=== PATIENT | female | born 1925 | race Caucasian/White ===

== ENCOUNTER 2016-09-27 16:21 | Inpatient (IN) | payer MEDICARE, OTHER ==
[~2016-09-27] VITALS: Ht 152.4 cm; Wt 70.6 kg
[2016-09-27] MEDS ORDERED: OPTIRAY 350 100 ML VIAL HMH IV ONE (16:22)
[2016-09-27] MEDS ORDERED: ACETAMINOPHEN 650 MG/20.3 ML UDC ONE (18:00)
[2016-09-27] MEDS ORDERED: NITROGLYCERIN 2% OINT 1 INCH PKT TOPICAL ONE (18:00)
[2016-09-27] MEDS ORDERED: ACETAMINOPHEN 325 MG TAB ONE (18:01)
[2016-09-27] MEDS ORDERED: LABETALOL 100 MG/20 ML VIAL ONE (19:36)
[2016-09-27] MEDS ORDERED: cloNIDine 0.1 MG TAB ONE (21:34)
[2016-09-27] MEDS ORDERED: CEFTRIAXONE 1 GM VIAL ONE (23:06)
[2016-09-27] MEDS ORDERED: SODIUM CHLORIDE 0.9% 100 ML IV ONE (23:06)
[2016-09-28] VITALS (7 sets, daily range): BP systolic 140–200; RESP 16–32; TEMP 97.4–97.8; Ht 152.4 cm; Wt 70.6 kg
[2016-09-28] MEDS: DUONEB INH SCH ×6 (03:14→22:18)
[2016-09-28] MEDS ORDERED: DUONEB INH ONE (03:28)
[2016-09-28] MEDS ORDERED: NEBIVOLOL 10 MG TAB PO SCH (09:00)
[2016-09-28] MEDS ORDERED: LISINOPRIL 10 MG TAB PO SCH (09:00)
[2016-09-28] MEDS ORDERED: POLYETHYLENE GLYCOL 17 GM PACKET PO PRN (10:05)
[2016-09-28] MEDS ORDERED: DOCUSATE SOD 100 MG CAP PO PRN (10:05)
[2016-09-28] MEDS: CHOLECALCIFEROL 1,000 UNITS TAB PO SCH (11:12)
[2016-09-28] MEDS: Furosemide 20 MG/2 ML VIAL IV SCH (11:12)
[2016-09-28] MEDS: LISINOPRIL 20 MG TAB PO SCH ×2 (11:12→20:18)
[2016-09-28] MEDS: ASPIRIN EC 81 MG TAB PO SCH (11:12)
[2016-09-28] MEDS: amLODIPine 5 MG TAB PO SCH (11:12)
[2016-09-28] MEDS: NEBIVOLOL 10 MG TAB PO SCH (11:12)
[2016-09-28] MEDS: ISOSORBIDE MONO 60 MG TAB PO SCH (11:12)
[2016-09-28] MEDS: ENOXAPARIN 30 MG/0.3 ML SYR SUBQ SCH (11:14)
[2016-09-28] MEDS: CEFTRIAXONE 1 GM in SODIUM CHLORIDE 0.9% 50 ML IV SCH (12:12)
[2016-09-28] MEDS: AZITHROMYCIN 500 MG in SODIUM CHLORIDE 0.9% 250 ML IV SCH (13:05)
[2016-09-28] MEDS: DIGOXIN 0.125 MG TAB PO SCH (13:05)
[2016-09-28] MEDS ORDERED: QUEtiapine 25 MG TAB PO STA (17:33)
[2016-09-28] MEDS: LEVOTHYROXINE 0.075 MG TAB PO SCH (20:19)
[2016-09-28] MEDS: ACETAMINOPHEN E.R. 650 MG TAB PO SCH (20:19)
[2016-09-28] MEDS ORDERED: TEMAZEPAM 7.5 MG CAP PO ONE (21:00)
[2016-09-28] MEDS ORDERED: LISINOPRIL 20 MG TAB PO SCH (21:00)
[2016-09-28] MEDS ORDERED: HALOPERIDOL 5 MG/ML VIAL IV ONE (23:20)
[2016-09-29] MEDS ORDERED: HALOPERIDOL 5 MG/ML VIAL IV ONE
[2016-09-29] MEDS: PHENAZOPYRIDINE 200 MG TAB PO PRN ×2 (01:01→21:26)
[2016-09-29] MEDS ORDERED: MORPHINE 4 MG/ML SYR IV ONE (01:10)
[2016-09-29 01:30] VITALS: BP_SYST 194; RESP 24; TEMP 99
[2016-09-29] MEDS: DUONEB INH SCH ×6 (02:26→23:02)
[2016-09-29 05:00] VITALS: BP_SYST 164; RESP 20; TEMP 98.1
[2016-09-29 07:32] VITALS: BP_SYST 152; RESP 24; TEMP 98.3
[2016-09-29] MEDS: AZITHROMYCIN 500 MG in SODIUM CHLORIDE 0.9% 250 ML IV SCH (08:51)
[2016-09-29] MEDS ORDERED: NEBIVOLOL 10 MG TAB PO SCH (09:00)
[2016-09-29] MEDS: NEBIVOLOL 10 MG TAB PO SCH (09:40)
[2016-09-29] MEDS: LISINOPRIL 20 MG TAB PO SCH ×2 (09:41→21:25)
[2016-09-29] MEDS: ISOSORBIDE MONO 60 MG TAB PO SCH (09:41)
[2016-09-29] MEDS: CHOLECALCIFEROL 1,000 UNITS TAB PO SCH (09:41)
[2016-09-29] MEDS: amLODIPine 5 MG TAB PO SCH (09:41)
[2016-09-29] MEDS: Furosemide 20 MG/2 ML VIAL IV SCH (09:42)
[2016-09-29] MEDS: ENOXAPARIN 30 MG/0.3 ML SYR SUBQ SCH (09:42)
[2016-09-29] MEDS: CEFTRIAXONE 1 GM in SODIUM CHLORIDE 0.9% 50 ML IV SCH (09:46)
[2016-09-29] MEDS ORDERED: MISSING DOSE XX ONE (09:50)
[2016-09-29] MEDS: ASPIRIN EC 81 MG TAB PO SCH (11:19)
[2016-09-29] MEDS: VENOFER 100 MG/5 ML VL IV SCH (11:19)
[2016-09-29] MEDS: KCL CR 8 MEQ TAB PO SCH ×2 (11:19→21:26)
[2016-09-29 11:22] VITALS: BP_SYST 150; RESP 18; TEMP 98.1
[2016-09-29 16:00] VITALS: BP_SYST 159; RESP 20; TEMP 97.7
[2016-09-29] MEDS ORDERED: LORAZEPAM 0.5 MG TAB PO PRN (19:25)
[2016-09-29 20:14] VITALS: BP_SYST 178; RESP 17; TEMP 97.6
[2016-09-29] MEDS: ACETAMINOPHEN E.R. 650 MG TAB PO SCH (21:26)
[2016-09-29] MEDS: LEVOTHYROXINE 0.075 MG TAB PO SCH (21:26)
[2016-09-30] VITALS (9 sets, daily range): BP systolic 137–184; RESP 17–20; TEMP 97.4–98.8
[2016-09-30] MEDS: DUONEB INH SCH ×6 (07:00→23:00)
[2016-09-30] MEDS: KCL CR 8 MEQ TAB PO SCH ×3 (09:00→21:00)
[2016-09-30] MEDS: AZITHROMYCIN 500 MG in SODIUM CHLORIDE 0.9% 250 ML IV SCH (09:02)
[2016-09-30] MEDS: CEFTRIAXONE 1 GM in SODIUM CHLORIDE 0.9% 50 ML IV SCH (09:02)
[2016-09-30] MEDS: Furosemide 20 MG/2 ML VIAL IV SCH (09:03)
[2016-09-30] MEDS: VENOFER 100 MG/5 ML VL IV SCH (09:03)
[2016-09-30] MEDS: CHOLECALCIFEROL 1,000 UNITS TAB PO SCH (09:04)
[2016-09-30] MEDS: PHENAZOPYRIDINE 200 MG TAB PO PRN (09:04)
[2016-09-30] MEDS: NEBIVOLOL 10 MG TAB PO SCH (09:04)
[2016-09-30] MEDS: ISOSORBIDE MONO 60 MG TAB PO SCH (09:04)
[2016-09-30] MEDS: ENOXAPARIN 30 MG/0.3 ML SYR SUBQ SCH (09:04)
[2016-09-30] MEDS: LISINOPRIL 20 MG TAB PO SCH ×2 (09:05→21:00)
[2016-09-30] MEDS: ASPIRIN EC 81 MG TAB PO SCH (09:05)
[2016-09-30] MEDS: amLODIPine 5 MG TAB PO SCH (09:05)
[2016-09-30] MEDS: DIGOXIN 0.125 MG TAB PO SCH (11:37)
[2016-09-30] MEDS: LEVOTHYROXINE 0.075 MG TAB PO SCH (21:00)
[2016-09-30] MEDS: ACETAMINOPHEN E.R. 650 MG TAB PO SCH (21:00)
[2016-10-01] VITALS (10 sets, daily range): BP systolic 129–169; RESP 16–20; TEMP 97.4–98.8
[2016-10-01] MEDS: DUONEB INH SCH ×5 (07:09→22:49)
[2016-10-01] MEDS: CEFTRIAXONE 1 GM in SODIUM CHLORIDE 0.9% 50 ML IV SCH (08:13)
[2016-10-01] MEDS: VENOFER 100 MG/5 ML VL IV SCH (08:14)
[2016-10-01] MEDS: Furosemide 20 MG/2 ML VIAL IV SCH (08:15)
[2016-10-01] MEDS: ISOSORBIDE MONO 60 MG TAB PO SCH (08:16)
[2016-10-01] MEDS: NEBIVOLOL 10 MG TAB PO SCH (08:16)
[2016-10-01] MEDS: ASPIRIN EC 81 MG TAB PO SCH (08:16)
[2016-10-01] MEDS: KCL CR 8 MEQ TAB PO SCH ×2 (08:17→20:56)
[2016-10-01] MEDS: amLODIPine 5 MG TAB PO SCH (08:17)
[2016-10-01] MEDS: LISINOPRIL 20 MG TAB PO SCH ×2 (08:18→20:58)
[2016-10-01] MEDS: ENOXAPARIN 30 MG/0.3 ML SYR SUBQ SCH (08:19)
[2016-10-01] MEDS: CHOLECALCIFEROL 1,000 UNITS TAB PO SCH (08:20)
[2016-10-01] MEDS: AZITHROMYCIN 500 MG in SODIUM CHLORIDE 0.9% 250 ML IV SCH (10:24)
[2016-10-01] MEDS: ACETAMINOPHEN E.R. 650 MG TAB PO SCH (20:57)
[2016-10-01] MEDS: LEVOTHYROXINE 0.075 MG TAB PO SCH (20:58)
[2016-10-02] VITALS (11 sets, daily range): BP systolic 135–164; RESP 18–20; TEMP 97.5–99.1
[2016-10-02] MEDS ORDERED: SALINE FLUSH 10 ML FLUSH PRN (03:40)
[2016-10-02] MEDS: SODIUM CHLORIDE 0.9% FLUSH BAG 500 ML IV SCH (05:38)
[2016-10-02] MEDS: DUONEB INH SCH ×5 (07:02→22:27)
[2016-10-02] MEDS: ISOSORBIDE MONO 60 MG TAB PO SCH (09:27)
[2016-10-02] MEDS: KCL CR 8 MEQ TAB PO SCH ×2 (09:27→20:39)
[2016-10-02] MEDS: NEBIVOLOL 10 MG TAB PO SCH (09:27)
[2016-10-02] MEDS: CHOLECALCIFEROL 1,000 UNITS TAB PO SCH (09:27)
[2016-10-02] MEDS: Furosemide 20 MG/2 ML VIAL IV SCH (09:28)
[2016-10-02] MEDS: amLODIPine 5 MG TAB PO SCH (09:28)
[2016-10-02] MEDS: LISINOPRIL 20 MG TAB PO SCH ×2 (09:28→20:38)
[2016-10-02] MEDS: ASPIRIN EC 81 MG TAB PO SCH (09:28)
[2016-10-02] MEDS: SALINE FLUSH 10 ML FLUSH SCH ×2 (09:29→20:38)
[2016-10-02] MEDS: CEFTRIAXONE 1 GM in SODIUM CHLORIDE 0.9% 50 ML IV SCH (09:29)
[2016-10-02] MEDS: VENOFER 100 MG/5 ML VL IV SCH (09:29)
[2016-10-02] MEDS: ENOXAPARIN 30 MG/0.3 ML SYR SUBQ SCH (09:29)
[2016-10-02] MEDS: DIGOXIN 0.125 MG TAB PO SCH (11:50)
[2016-10-02] MEDS: LEVOTHYROXINE 0.075 MG TAB PO SCH (20:39)
[2016-10-02] MEDS: ACETAMINOPHEN E.R. 650 MG TAB PO SCH (20:39)
[2016-10-03] VITALS (7 sets, daily range): BP systolic 132–155; RESP 20; TEMP 97.2–98.3
[2016-10-03] MEDS: SODIUM CHLORIDE 0.9% FLUSH BAG 500 ML IV SCH (06:18)
[2016-10-03] MEDS: DUONEB INH SCH ×3 (07:49→15:00)
[2016-10-03] MEDS: ISOSORBIDE MONO 60 MG TAB PO SCH (09:29)
[2016-10-03] MEDS: NEBIVOLOL 10 MG TAB PO SCH (09:29)
[2016-10-03] MEDS: LISINOPRIL 20 MG TAB PO SCH (09:29)
[2016-10-03] MEDS: CHOLECALCIFEROL 1,000 UNITS TAB PO SCH (09:29)
[2016-10-03] MEDS: Furosemide 20 MG/2 ML VIAL IV SCH (09:30)
[2016-10-03] MEDS: KCL CR 8 MEQ TAB PO SCH (09:30)
[2016-10-03] MEDS: amLODIPine 5 MG TAB PO SCH (09:30)
[2016-10-03] MEDS: SALINE FLUSH 10 ML FLUSH SCH (09:31)
[2016-10-03] MEDS: VENOFER 100 MG/5 ML VL IV SCH (09:31)
[2016-10-03] MEDS: CEFTRIAXONE 1 GM in SODIUM CHLORIDE 0.9% 50 ML IV SCH (09:31)
[2016-10-03] MEDS: ENOXAPARIN 30 MG/0.3 ML SYR SUBQ SCH (09:32)
[2016-10-03] MEDS: ASPIRIN EC 81 MG TAB PO SCH (09:33)
== END 2016-10-03 15:30 | DRG 291 ==
LOC: ENRESERVTM → ENRESERVDT → CANRESERV → ER 16:21 → ENPENDDIS 23:16 → EMR 23:16 → PCU 09-28 01:11 → PCU2 09-28 19:40 → 3NT 09-30 17:41
PROVIDERS: ADMIT Internal Medicine; ATTEND Internal Medicine
DX: I13.0 Hypertensive heart and chronic kidney disease with heart failure and stage 1 through stage 4 chronic kidney disease, or unspecified chronic kidney disease (principal); I50.21 Acute systolic (congestive) heart failure; J96.01 Acute respiratory failure with hypoxia; J18.9 Pneumonia, unspecified organism; N18.3 Chronic kidney disease, stage 3 (moderate); Z95.0 Presence of cardiac pacemaker; E55.9 Vitamin D deficiency, unspecified; E03.9 Hypothyroidism, unspecified; E78.5 Hyperlipidemia, unspecified; D50.9 Iron deficiency anemia, unspecified; E66.01 Morbid (severe) obesity due to excess calories; Z68.32 Body mass index [BMI] 32.0-32.9, adult; Z78.1 Physical restraint status; Z86.718 Personal history of other venous thrombosis and embolism; Z79.82 Long term (current) use of aspirin; G31.84 Mild cognitive impairment of uncertain or unknown etiology; M51.36 Other intervertebral disc degeneration, lumbar region; M51.34 Other intervertebral disc degeneration, thoracic region; G47.33 Obstructive sleep apnea (adult) (pediatric); Z85.828 Personal history of other malignant neoplasm of skin; E87.6 Hypokalemia; F41.9 Anxiety disorder, unspecified; R41.0 Disorientation, unspecified
CPT/HCPCS: 36415; 36600; 71010; 71260; 80048; 80053; 80162; 81001; 82306; 82553; 82607; 82728; 82746; 82803; 83540; 83735; 83880; 84439; 84443; 84466; 84484; 85025; 93005; 93306; 94640; 94799; 96365; 96375

== ENCOUNTER 2016-10-02 16:52 | Inpatient (IN) | payer MEDICARE, OTHER ==
[~2016-10-02] VITALS: Ht 152.4 cm; Wt 72.7 kg
[2016-10-03] MEDS ORDERED: DOCUSATE SOD 100 MG CAP PO PRN (12:00)
[2016-10-03] MEDS ORDERED: POLYETHYLENE GLYCOL 17 GM PACKET PO PRN (12:00)
[2016-10-03] MEDS ORDERED: DUONEB INH SCH (12:00)
[2016-10-03 15:43] VITALS: RESP 18
[2016-10-03 17:29] VITALS: BP_SYST 130
[2016-10-03 17:33] VITALS: BP_SYST 150
[2016-10-03] MEDS: DUONEB INH SCH ×2 (18:54→23:51)
[2016-10-03 19:35] VITALS: RESP 18; TEMP 99
[2016-10-03] MEDS ORDERED: TUBERCULIN PPD 5 UNIT SYR ID.VACC ONE (21:00)
[2016-10-03 21:07] VITALS: RESP 18; TEMP 97.8
[2016-10-03] MEDS: LISINOPRIL 20 MG TAB PO SCH (21:26)
[2016-10-03] MEDS: CEFUROXIME 250 MG TAB PO SCH (21:27)
[2016-10-03] MEDS: ACETAMINOPHEN E.R. 650 MG TAB PO SCH (21:27)
[2016-10-03] MEDS: LEVOTHYROXINE 0.075 MG TAB PO SCH (21:27)
[2016-10-04 06:41] VITALS: BP_SYST 128; RESP 18; TEMP 98.2
[2016-10-04] MEDS: DUONEB INH SCH ×4 (06:42→23:38)
[2016-10-04] MEDS: Furosemide 40 MG TAB PO SCH (09:43)
[2016-10-04] MEDS: LISINOPRIL 20 MG TAB PO SCH ×2 (09:43→21:15)
[2016-10-04] MEDS: CHOLECALCIFEROL 1,000 UNITS TAB PO SCH (09:43)
[2016-10-04] MEDS: KCL CR 20 MEQ TAB PO SCH (09:43)
[2016-10-04] MEDS: amLODIPine 5 MG TAB PO SCH (09:44)
[2016-10-04] MEDS: NEBIVOLOL 10 MG TAB PO SCH (09:44)
[2016-10-04] MEDS: CEFUROXIME 250 MG TAB PO SCH ×2 (09:44→21:14)
[2016-10-04] MEDS: ISOSORBIDE MONO 60 MG TAB PO SCH (09:44)
[2016-10-04] MEDS: ASPIRIN EC 81 MG TAB PO SCH (09:44)
[2016-10-04] MEDS: ENOXAPARIN 30 MG/0.3 ML SYR SUBQ SCH (09:45)
[2016-10-04 11:09] VITALS: BP_SYST 149; RESP 16; TEMP 98
[2016-10-04 11:10] VITALS: RESP 16; TEMP 98
[2016-10-04 12:07] VITALS: BP_SYST 151; RESP 18; TEMP 97.3
[2016-10-04] MEDS: DIGOXIN 0.125 MG TAB PO SCH (12:59)
[2016-10-04 16:33] VITALS: BP_SYST 123; RESP 16; TEMP 99
[2016-10-04] MEDS: ACETAMINOPHEN E.R. 650 MG TAB PO SCH (21:14)
[2016-10-04] MEDS: LEVOTHYROXINE 0.075 MG TAB PO SCH (21:14)
[2016-10-05 00:50] VITALS: BP_SYST 145; RESP 20; TEMP 97.8
[2016-10-05 00:51] VITALS: TEMP 97.8
[2016-10-05 02:50] VITALS: RESP 20
[2016-10-05] MEDS: DUONEB INH SCH ×4 (06:27→23:34)
[2016-10-05] MEDS: ISOSORBIDE MONO 60 MG TAB PO SCH (08:57)
[2016-10-05] MEDS: KCL CR 20 MEQ TAB PO SCH (08:57)
[2016-10-05] MEDS: ASPIRIN EC 81 MG TAB PO SCH (08:57)
[2016-10-05] MEDS: CHOLECALCIFEROL 1,000 UNITS TAB PO SCH (08:57)
[2016-10-05] MEDS: LORAZEPAM 0.5 MG TAB PO PRN (08:57)
[2016-10-05] MEDS: NEBIVOLOL 10 MG TAB PO SCH (08:58)
[2016-10-05] MEDS: ENOXAPARIN 30 MG/0.3 ML SYR SUBQ SCH (08:58)
[2016-10-05] MEDS: LISINOPRIL 20 MG TAB PO SCH ×2 (08:58→20:58)
[2016-10-05] MEDS: Furosemide 40 MG TAB PO SCH (08:59)
[2016-10-05] MEDS: CEFUROXIME 250 MG TAB PO SCH ×2 (08:59→20:57)
[2016-10-05] MEDS: amLODIPine 5 MG TAB PO SCH (08:59)
[2016-10-05 09:27] VITALS: BP_SYST 143; TEMP 98.1
[2016-10-05 09:28] VITALS: RESP 20
[2016-10-05 13:56] VITALS: Ht 152.4 cm; Wt 72.7 kg
[2016-10-05 16:26] VITALS: BP_SYST 137; RESP 20; TEMP 98.2
[2016-10-05] MEDS: LEVOTHYROXINE 0.075 MG TAB PO SCH (20:57)
[2016-10-05] MEDS: ACETAMINOPHEN E.R. 650 MG TAB PO SCH (20:58)
[2016-10-05] MEDS: SKIN TEST: READ AND RECORD XX SCH (21:02)
[2016-10-06 01:46] VITALS: BP_SYST 141; RESP 20; TEMP 97.7
[2016-10-06 01:47] VITALS: TEMP 97.7
[2016-10-06] MEDS: DUONEB INH SCH ×4 (06:56→23:27)
[2016-10-06] MEDS: LISINOPRIL 20 MG TAB PO SCH ×2 (09:03→20:48)
[2016-10-06] MEDS: CHOLECALCIFEROL 1,000 UNITS TAB PO SCH (09:03)
[2016-10-06] MEDS: ASPIRIN EC 81 MG TAB PO SCH (09:03)
[2016-10-06] MEDS: LORAZEPAM 0.5 MG TAB PO PRN ×2 (09:03→16:02)
[2016-10-06] MEDS: Furosemide 40 MG TAB PO SCH (09:03)
[2016-10-06] MEDS: amLODIPine 5 MG TAB PO SCH (09:03)
[2016-10-06] MEDS: ISOSORBIDE MONO 60 MG TAB PO SCH (09:03)
[2016-10-06] MEDS: KCL CR 20 MEQ TAB PO SCH (09:03)
[2016-10-06] MEDS: CEFUROXIME 250 MG TAB PO SCH ×2 (09:04→20:47)
[2016-10-06] MEDS: NEBIVOLOL 10 MG TAB PO SCH (09:04)
[2016-10-06] MEDS: ENOXAPARIN 30 MG/0.3 ML SYR SUBQ SCH (09:04)
[2016-10-06 09:09] VITALS: BP_SYST 130
[2016-10-06 09:11] VITALS: RESP 20; TEMP 97.6
[2016-10-06] MEDS: DIGOXIN 0.125 MG TAB PO SCH (12:47)
[2016-10-06 16:22] VITALS: BP_SYST 131; RESP 20; TEMP 97.6
[2016-10-06] MEDS: LEVOTHYROXINE 0.075 MG TAB PO SCH (20:48)
[2016-10-06] MEDS: ACETAMINOPHEN E.R. 650 MG TAB PO SCH (20:48)
[2016-10-07 00:12] VITALS: BP_SYST 136; RESP 20; TEMP 97.5
[2016-10-07] MEDS: DUONEB INH SCH ×4 (06:35→23:45)
[2016-10-07] MEDS: NEBIVOLOL 10 MG TAB PO SCH (08:30)
[2016-10-07] MEDS: KCL CR 20 MEQ TAB PO SCH (08:30)
[2016-10-07] MEDS: LISINOPRIL 20 MG TAB PO SCH ×2 (08:30→21:02)
[2016-10-07] MEDS: amLODIPine 5 MG TAB PO SCH (08:30)
[2016-10-07] MEDS: Furosemide 40 MG TAB PO SCH (08:30)
[2016-10-07] MEDS: CHOLECALCIFEROL 1,000 UNITS TAB PO SCH (08:31)
[2016-10-07] MEDS: ASPIRIN EC 81 MG TAB PO SCH (08:31)
[2016-10-07] MEDS: ISOSORBIDE MONO 60 MG TAB PO SCH (08:31)
[2016-10-07] MEDS: CEFUROXIME 250 MG TAB PO SCH ×2 (08:31→21:02)
[2016-10-07] MEDS: ENOXAPARIN 30 MG/0.3 ML SYR SUBQ SCH (08:35)
[2016-10-07 09:15] VITALS: BP_SYST 109; TEMP 97.5
[2016-10-07 09:16] VITALS: RESP 20
[2016-10-07] MEDS ORDERED: MAG HYDROX 30 ML UDC PO PRN (15:15)
[2016-10-07] MEDS ORDERED: BISACODYL 10 MG SUPP RECTAL PRN (15:15)
[2016-10-07 16:03] VITALS: BP_SYST 112; RESP 18; TEMP 98.2
[2016-10-07] MEDS: LEVOTHYROXINE 0.075 MG TAB PO SCH (21:02)
[2016-10-07] MEDS: ACETAMINOPHEN E.R. 650 MG TAB PO SCH (21:02)
[2016-10-08 00:03] VITALS: BP_SYST 146; RESP 18
[2016-10-08 00:04] VITALS: TEMP 97.7
[2016-10-08] MEDS: DUONEB INH SCH ×4 (08:00→23:57)
[2016-10-08] MEDS: ASPIRIN EC 81 MG TAB PO SCH (08:56)
[2016-10-08] MEDS: NEBIVOLOL 10 MG TAB PO SCH (08:57)
[2016-10-08] MEDS: KCL CR 20 MEQ TAB PO SCH (08:57)
[2016-10-08] MEDS: amLODIPine 5 MG TAB PO SCH (08:57)
[2016-10-08] MEDS: CEFUROXIME 250 MG TAB PO SCH (08:57)
[2016-10-08] MEDS: Furosemide 40 MG TAB PO SCH (08:57)
[2016-10-08] MEDS: ISOSORBIDE MONO 60 MG TAB PO SCH (08:57)
[2016-10-08] MEDS: CHOLECALCIFEROL 1,000 UNITS TAB PO SCH (08:58)
[2016-10-08] MEDS: LISINOPRIL 20 MG TAB PO SCH ×2 (08:58→20:55)
[2016-10-08] MEDS: ENOXAPARIN 30 MG/0.3 ML SYR SUBQ SCH (08:58)
[2016-10-08 10:06] VITALS: BP_SYST 144; TEMP 97.7
[2016-10-08 10:07] VITALS: RESP 20
[2016-10-08] MEDS: DIGOXIN 0.125 MG TAB PO SCH (12:15)
[2016-10-08 19:54] VITALS: BP_SYST 150; RESP 20; TEMP 98.2
[2016-10-08] MEDS: LEVOTHYROXINE 0.075 MG TAB PO SCH (20:55)
[2016-10-08] MEDS: ACETAMINOPHEN E.R. 650 MG TAB PO SCH (20:56)
[2016-10-09 00:42] VITALS: BP_SYST 141; RESP 18; TEMP 97.8
[2016-10-09] MEDS: DUONEB INH SCH ×3 (06:25→18:12)
[2016-10-09] MEDS: CHOLECALCIFEROL 1,000 UNITS TAB PO SCH (08:54)
[2016-10-09] MEDS: NEBIVOLOL 10 MG TAB PO SCH (08:56)
[2016-10-09] MEDS: amLODIPine 5 MG TAB PO SCH (08:56)
[2016-10-09] MEDS: LISINOPRIL 20 MG TAB PO SCH ×2 (08:57→20:22)
[2016-10-09] MEDS: ASPIRIN EC 81 MG TAB PO SCH (08:57)
[2016-10-09] MEDS: ISOSORBIDE MONO 60 MG TAB PO SCH (08:57)
[2016-10-09 10:20] VITALS: BP_SYST 127; TEMP 97.6
[2016-10-09] MEDS ORDERED: DOCUSATE SOD 100 MG CAP PO PRN (10:20)
[2016-10-09 10:21] VITALS: RESP 20
[2016-10-09 15:49] VITALS: BP_SYST 120; RESP 18; TEMP 98.6
[2016-10-09] MEDS: ACETAMINOPHEN E.R. 650 MG TAB PO SCH (20:21)
[2016-10-09] MEDS: LEVOTHYROXINE 0.075 MG TAB PO SCH (20:22)
[2016-10-10] MEDS: DUONEB INH SCH ×5 (00:01→23:25)
[2016-10-10 02:58] VITALS: BP_SYST 148; RESP 18; TEMP 98
[2016-10-10] MEDS: LISINOPRIL 20 MG TAB PO SCH ×2 (09:28→20:21)
[2016-10-10] MEDS: ASPIRIN EC 81 MG TAB PO SCH (09:29)
[2016-10-10] MEDS: NEBIVOLOL 10 MG TAB PO SCH (09:29)
[2016-10-10] MEDS: amLODIPine 5 MG TAB PO SCH (09:29)
[2016-10-10] MEDS: ISOSORBIDE MONO 60 MG TAB PO SCH (09:29)
[2016-10-10] MEDS: CHOLECALCIFEROL 1,000 UNITS TAB PO SCH (09:29)
[2016-10-10 09:48] VITALS: BP_SYST 134; TEMP 98.2
[2016-10-10 09:49] VITALS: RESP 20
[2016-10-10] MEDS: DIGOXIN 0.125 MG TAB PO SCH (12:00)
[2016-10-10 16:02] VITALS: BP_SYST 135; RESP 20; TEMP 97.7
[2016-10-10] MEDS: LEVOTHYROXINE 0.075 MG TAB PO SCH (20:21)
[2016-10-10] MEDS: ACETAMINOPHEN E.R. 650 MG TAB PO SCH (20:22)
[2016-10-10] MEDS ORDERED: TUBERCULIN PPD 5 UNIT SYR ID.VACC ONE (21:00)
[2016-10-11 00:01] VITALS: BP_SYST 128; RESP 18; TEMP 98
[2016-10-11] MEDS: DUONEB INH SCH ×4 (06:41→22:27)
[2016-10-11 07:35] VITALS: BP_SYST 131; RESP 16; TEMP 98.1
[2016-10-11] MEDS: NEBIVOLOL 10 MG TAB PO SCH (08:41)
[2016-10-11] MEDS: amLODIPine 5 MG TAB PO SCH (08:41)
[2016-10-11] MEDS: ISOSORBIDE MONO 60 MG TAB PO SCH (08:41)
[2016-10-11] MEDS: ASPIRIN EC 81 MG TAB PO SCH (08:41)
[2016-10-11] MEDS: LISINOPRIL 20 MG TAB PO SCH ×2 (08:41→20:21)
[2016-10-11] MEDS: CHOLECALCIFEROL 1,000 UNITS TAB PO SCH (08:41)
[2016-10-11 15:44] VITALS: BP_SYST 137; RESP 18; TEMP 98.1
[2016-10-11] MEDS: LEVOTHYROXINE 0.075 MG TAB PO SCH (20:21)
[2016-10-11] MEDS: ACETAMINOPHEN E.R. 650 MG TAB PO SCH (20:22)
[2016-10-12 00:09] VITALS: RESP 18; TEMP 97.5
[2016-10-12 00:11] VITALS: BP_SYST 142
[2016-10-12] MEDS: LORAZEPAM 0.5 MG TAB PO PRN (00:32)
[2016-10-12] MEDS: DUONEB INH SCH ×4 (06:15→23:31)
[2016-10-12] MEDS: ISOSORBIDE MONO 60 MG TAB PO SCH (08:17)
[2016-10-12] MEDS: LISINOPRIL 20 MG TAB PO SCH ×2 (08:17→20:35)
[2016-10-12] MEDS: ASPIRIN EC 81 MG TAB PO SCH (08:17)
[2016-10-12] MEDS: amLODIPine 5 MG TAB PO SCH (08:17)
[2016-10-12] MEDS: CHOLECALCIFEROL 1,000 UNITS TAB PO SCH (08:17)
[2016-10-12] MEDS: NEBIVOLOL 10 MG TAB PO SCH (08:17)
[2016-10-12 08:47] VITALS: BP_SYST 140; TEMP 97.4
[2016-10-12 08:48] VITALS: RESP 20
[2016-10-12] MEDS: DIGOXIN 0.125 MG TAB PO SCH (12:24)
[2016-10-12 15:25] VITALS: BP_SYST 115; RESP 18; TEMP 98.1
[2016-10-12] MEDS: LEVOTHYROXINE 0.075 MG TAB PO SCH (20:35)
[2016-10-12] MEDS: ACETAMINOPHEN E.R. 650 MG TAB PO SCH (20:35)
[2016-10-12] MEDS: SKIN TEST: READ AND RECORD XX SCH (20:36)
[2016-10-13 03:00] VITALS: BP_SYST 140; TEMP 97.9
[2016-10-13] MEDS: DUONEB INH SCH ×2 (06:50→11:38)
[2016-10-13] MEDS: LORAZEPAM 0.5 MG TAB PO PRN (10:40)
[2016-10-13] MEDS: CHOLECALCIFEROL 1,000 UNITS TAB PO SCH (10:41)
[2016-10-13] MEDS: amLODIPine 5 MG TAB PO SCH (10:41)
[2016-10-13] MEDS: NEBIVOLOL 10 MG TAB PO SCH (10:41)
[2016-10-13] MEDS: ISOSORBIDE MONO 60 MG TAB PO SCH (10:41)
[2016-10-13] MEDS: ASPIRIN EC 81 MG TAB PO SCH (10:41)
[2016-10-13] MEDS: LISINOPRIL 20 MG TAB PO SCH (10:42)
[2016-10-13 10:57] VITALS: BP_SYST 129
[2016-10-13 11:00] VITALS: TEMP 97.5
[2016-10-13 11:02] VITALS: RESP 20
[2016-10-13 12:36] VITALS: BP_SYST 129; RESP 20; TEMP 97.5
== END 2016-10-13 14:04 | disposition home health service (06) | DRG 91 ==
LOC: NF 10-03 16:14
PROVIDERS: ADMIT Internal Medicine; ATTEND Internal Medicine
DX: R26.9 Unspecified abnormalities of gait and mobility (principal); J96.01 Acute respiratory failure with hypoxia; J18.9 Pneumonia, unspecified organism; I50.21 Acute systolic (congestive) heart failure; I13.0 Hypertensive heart and chronic kidney disease with heart failure and stage 1 through stage 4 chronic kidney disease, or unspecified chronic kidney disease; N18.3 Chronic kidney disease, stage 3 (moderate); R53.1 Weakness; Z91.81 History of falling; Z95.0 Presence of cardiac pacemaker; E03.9 Hypothyroidism, unspecified; G47.33 Obstructive sleep apnea (adult) (pediatric); M19.90 Unspecified osteoarthritis, unspecified site; Z87.898 Personal history of other specified conditions
CPT/HCPCS: 36415; 80048; 80053; 82947; 83880; 85025; 86580; 94640; 94799